=== PATIENT | female | born 1970 | race Caucasian/White ===

== ENCOUNTER 2017-10-04 15:37 | Emergency (ER) | payer OTHER ==
[2017-10-04 17:17] VITALS: BP 143/97
--- NOTE | 2017-10-04 17:45 | ED ---
Abdominal Pain/Female - HPI Summary HPI Summary: 47 yr old female with the complaint of abdominal pain. Onset of pain a week ago , and it comes and goes, located in the right lower abdomen, and right mid side abdomen. Not better or worse with anything. No NVD. No constipation. No fever , chills. No dysuria. No vaginal bleeding. She has a history of urterine cancer and she has had a EDILMA. She states she still have her ovaries. Pain 8/ 10 when she arrived here, and presently states it is 0/10 - History of Current Complaint Chief Complaint: UCAbdominalPain Stated Complaint: RIGHT SIDE ABDOMINAL PAIN Time Seen by Provider: 10/04/17 17:22 Hx Last Menstrual Period: 08/18/16 Allergies/Adverse Reactions: Allergies Allergy/AdvReac Type Severity Reaction Status Date / Time No Known Allergies Allergy Verified 10/04/17 17:12 Home Medications: Home Medications NK [No Home Medications Reported] 10/04/17 [History Confirmed 10/04/17] PMH/Surg Hx/FS Hx/Imm Hx - Cancer History Cancer Type, Location and Year: Uterine, 2017 - Surgical History Surgery Procedure, Year, and Place: Partial Hysterectomy (has ovaries), 2017, [place], Cholecystectomy, Infectious Disease History: No Infectious Disease History: Denies: Traveled Outside the [place] in Last 30 Days - Family History Known Family History: Positive: Hypertension - Social History Occupation: Employed Full-time Alcohol Use: None Substance Use Type: Reports: None Smoking Status (MU): Never Smoked Tobacco Review of Systems Constitutional: Negative Positive: Abdominal Pain Positive: flank pain. Negative: burning, dysuria, discharge All Other Systems Reviewed And Are Negative: Yes Physical Exam Triage Information Reviewed: Yes Vital Signs On Initial Exam: Initial Vitals Temp Pulse Resp BP Pulse Ox 98.1 F 96 16 143/97 99 10/04/17 17:10 10/04/17 17:10 10/04/17 17:10 10/04/17 17:10 10/04/17 17:10 Vital Signs Reviewed: Yes Appearance: Positive: Well-Appearing, No Pain Distress Skin: Positive: Warm, Skin Color Reflects Adequate Perfusion Head/Face: Positive: Normal Head/Face Inspection Eyes: Positive: EOMI Dental: Positive: Cellulitis @ Neck: Positive: Nontender Respiratory/Lung Sounds: Positive: Clear to Auscultation, Breath Sounds Present Cardiovascular: Positive: RRR. Negative: Murmur Abdomen Description: Positive: Other: - tender right lower abdomen Musculoskeletal: Positive: Strength/ROM Intact Neurological: Positive: Sensory/Motor Intact, Alert, Oriented to Person Place, Time, CN Intact II-III, Normal Gait Psychiatric: Positive: Normal - Pierson Coma Scale Best Eye Response: 4 - Spontaneous Best Motor Response: 6 - Obeys Commands Best Verbal Response: 5 - Oriented Diagnostics - Vital Signs Vital Signs Temp Pulse Resp BP Pulse Ox 10/04/17 17:10 98.1 F 96 16 143/97 99 - Laboratory Lab Results: Lab Results 10/04/17 Range/Units 17:17 POC Urine Color Yellow POC Urine Clarity Clear POC Urine pH 6.5 (5-9) POC Ur Specif Myrtle <= 1.005 L (1.010-1.030) POC Urine Protein Negative (Negative) POC Ur Glucose (UA) Negative (Negative) POC Urine Ketones Negative (Negative) POC Urine Blood Negative (Negative) POC Urine Nitrite Negative (Negative) POC Urine Bilirubin Negative (Negative) POC Urine Urobilinogen 0.2 (Negative) POC U Leukocyte Esteras Trace H (Negative) Lab Statement: Any lab studies that have been ordered have been reviewed, and results considered in the medical decision making process. Abdominal Pain Fem Course/Dx - Course Course Of Treatment: 47 yr old female with right lower abdominal pain on palpation. It is recommended she go to the ER by ambulance in [facility] to not delay her care. She refused transfer by ambulance and signed out AMA. - Diagnoses Provider Diagnoses: Abdominal pain, Hypertension Discharge - Discharge Plan Condition: Good Disposition: AGAINST MEDICAL ADVICE Referrals: Casey Marquez MD [Primary Care Provider] -
== END 2017-10-04 17:36 | disposition left against medical advice (07) ==
LOC: UCCORT 15:37
DX: R10.31 Right lower quadrant pain (principal); I10 Essential (primary) hypertension; Z85.42 Personal history of malignant neoplasm of other parts of uterus; Z90.711 Acquired absence of uterus with remaining cervical stump; Z90.49 Acquired absence of other specified parts of digestive tract
CPT/HCPCS: 81003; 99212; G0463

== ENCOUNTER 2018-11-18 12:04 | Emergency (ER) | payer OTHER ==
--- NOTE | 2018-11-18 14:15 | UC ---
Abdominal Pain Female HPI - HPI Summary HPI Summary: 48-year-old female presents with a two-month history of intermittent right- sided abdominal discomfort. States she feels like there is swelling in her abdomen states she thinks she has some bruising along the upper part of her abdomen. She reports occasional diarrhea but recently has been having normal formed stools. Also complains of some intermittent nausea. She was recently seen for same complaint by her BUSINESS MAIL ENTRY CLERK, Dr. Marquez, who scheduled her for an abdominal ultrasound November 22, 2018. She states that she also went to the emergency room at [facility] today where they performed blood work, urine test, and an ultrasound the patient states workup was negative. Denies fever, chills, chest pain, shortness of breath, cough, vomiting, blood in stool, melena, dysuria, frequency, urgency, hematuria, vaginal discharge, or abnormal bleeding. - History of Current Complaint Chief Complaint: UCAbdominalPain Stated Complaint: RT SIDE PAIN/BRUISING Time Seen by Provider: 11/18/18 13:32 Hx Obtained From: Patient Hx Last Menstrual Period: 08/18/16 Pain Intensity: 8 Allergies/Adverse Reactions: Allergies Allergy/AdvReac Type Severity Reaction Status Date / Time No Known Allergies Allergy Verified 11/18/18 12:20 Home Medications: Home Medications Naproxen Sodium [Aleve] 440 mg PO BID PRN 11/18/18 [History Confirmed 11/18/18] PMH/Surg Hx/FS Hx/Imm Hx Previously Healthy: Yes GI/ History: Gall Bladder Disease - Surgical History Surgical History: Yes Surgery Procedure, Year, and Place: Partial Hysterectomy (has ovaries), 2016, [place], Cholecystectomy, - Family History Known Family History: Positive: Hypertension - Social History Occupation: Employed Full-time Lives: Alone Alcohol Use: None Substance Use Type: None Smoking Status (MU): Never Smoked Tobacco - Immunization History Most Recent Influenza Vaccination: Not the 2017/2017 Season Review of Systems All Other Systems Reviewed And Are Negative: Yes Constitutional: Negative: Fever, Chills Skin: Positive: Bruising. Negative: Rash ENT: Positive: Negative Respiratory: Negative: Shortness Of Breath, Cough Cardiovascular: Negative: Palpitations, Chest Pain Gastrointestinal: Positive: Abdominal Pain, Nausea. Negative: Vomiting, Diarrhea Genitourinary: Negative: Dysuria, Hematuria, Frequency, Urgency, Vaginal/Penile Discharge, Abnormal Bleeding Musculoskeletal: Positive: Negative Neurological: Positive: Negative Is Patient Immunocompromised?: No Physical Exam - Summary Physical Exam Summary: GENERAL APPEARANCE: Well developed, well nourished, alert and cooperative, and appears to be in no acute distress. CARDIAC: Normal S1 and S2. No S3, S4 or murmurs. Rhythm is regular. There is no peripheral edema, cyanosis or pallor. Extremities are warm and well perfused. Capillary refill is less than 2 seconds. Peripheral pulses intact. LUNGS: Clear to auscultation without rales, rhonchi, wheezing or diminished breath sounds. ABDOMEN: Positive bowel sounds. Soft, nondistended. Mild RUQ and RLQ tenderness without guarding or rebound. No masses or hepatosplenomegally. No CVA tenderness. MUSKULOSKELETAL: ROM intact to all extremities. No joint erythema or tenderness. Normal muscular development. Normal gait. SKIN: Skin normal color, texture and turgor with no lesions or eruptions. Triage Information Reviewed: Yes Vital Signs: Initial Vital Signs Temp 98.2 F 11/18/18 12:16 Pulse 84 11/18/18 12:16 Resp 17 11/18/18 12:16 BP 143/83 11/18/18 12:16 Pulse Ox 98 11/18/18 12:16 Vital Signs Reviewed: Yes Abd Pain Female Course/Dx - Course Course Of Treatment: 48-year-old female presents with a two-month history of intermittent right-sided abdominal discomfort. States she feels like there is swelling in her abdomen states she thinks she has some bruising along the upper part of her abdomen. She reports occasional diarrhea but recently has been having normal formed stools. Also complains of some intermittent nausea. She was recently seen for same complaint by her BUSINESS MAIL ENTRY CLERK, Dr. Marquez, who scheduled her for an abdominal ultrasound November 22, 2018. She states that she also went to the emergency room at [facility] today where they performed blood work, urine test, and an ultrasound the patient states workup was negative. Denies fever, chills, chest pain, shortness of breath, cough, vomiting, blood in stool, melena, dysuria, frequency, urgency, hematuria, vaginal discharge, or abnormal bleeding. Afebrile. Mildly elevated blood pressure otherwise vital signs stable. Patient's physical exam was unremarkable except for some mild right upper and right lower quadrant tenderness without guarding or rebound. To ER records from her visit this morning were requested however physician's note was not available at this time. I did obtain her lab work including a CBC and CMP and UA which were all unremarkable. I also reviewed the abdominal ultrasound that was performed which showed no acute pathology although evaluation of her pancreas was limited by overlying bowel gas. I reviewed all these findings with the patient and explained that we had limited capacity for performing any further evaluation of her abdominal pain. Considering the duration of her symptoms, an essentially normal exam, and benign workup performed at the emergency room I do not suspect that her abdominal pain represents an emergent condition and I feel that her symptoms can be further evaluated on an outpatient basis. She states her daughter has made an appointment for her to establish with a primary care provider within the next 2 weeks. I have encouraged her to keep this appointment. I did offer her the option of outpatient evaluation through the [facility] of [facility] but she declined stating she did not want to travel to [place] for evaluation. I did provide her with the contact information for the [facility] physicial referral service if she needed further assistance with establishing with a primary care provider. Warning symptoms that would required immediate evaluation in the emergency room were reviewed with the patient. Verbalizes understanding and agrees with POC. - Differential Dx/Diagnosis Differential Diagnosis: Bowel Obstruction, Constipation, Hepatitis, Irritable Bowel Syndrome, Pancreatitis, Renal Colic, Urinary Tract Infection Provider Diagnosis: Abdominal pain Discharge - Sign-Out/Discharge Documenting (check all that apply): Patient Departure All imaging exams completed and their final reports reviewed: No Studies - Discharge Plan Condition: Stable Disposition: HOME Patient Education Materials: Abdominal Pain (ED) Referrals: No Primary Care Phys,NOPCP [Primary Care Provider] - [facility]IAN REFERRAL [Outside] Additional Instructions: I reviewed your lab results and ultrasound report that was performed in the emergency room today which were all normal. You exam was unremarkable. Many times the cause of abdominal pain cannot be determined however I have a low suspicion that your pain is from an emergent condition and can be further evaluated on an outpatient basis. Be sure to keep the appointment with the primary care provider that your daughter scheduled for you within the next 2 weeks. I have provided you with the contact information for the [facility] physician referral service if you need further assistance with establishing with a primary care provider. Seek immediate medical attention in the emergency room if you develop fever greater than 100.5 F, have worsening abdominal pain, have persistent or projectile vomiting, blood in your vomit or stool, or any worsening of symptoms. - Billing Disposition and Condition Condition: STABLE Disposition: Home - Attestation Statements Provider Attestation: Per institutional requirements, I have reviewed the chart, however, I was not consulted specifically or made aware of this patient by the midlevel provider. I did not personally evaluate, interact with , or disposition this patient.
[2018-11-18 14:50] VITALS: BP 138/89
== END 2018-11-18 14:40 | disposition home or self-care (01) ==
LOC: UCCORT 12:04
DX: R10.9 Unspecified abdominal pain (principal); R19.7 Diarrhea, unspecified; R11.0 Nausea
CPT/HCPCS: 99211; G0463

== ENCOUNTER 2018-12-02 14:25 | Emergency (ER) | payer OTHER ==
[2018-12-02 14:43] VITALS: BP 143/95
--- NOTE | 2018-12-02 14:57 | UC ---
General HPI - HPI Summary HPI Summary: L UPPER BREAST TENDERNESS, PRESSURE AND SENSE OF FULLNESS ON AND OFF SINCE YESTERDAY. NO FEVER, RASH OR INJURY. DENIES ANY DISCHARGE FROM THE BREAST. STATES LAST MAMMOGRAM WAS ORDERED BY HER PROFESSOR OF MUSIC, DR MARQUEZ ABOUT 1 YEAR AGO AND WAS NORMAL. DOES SELF BREAST EXAMS REGULARLY. - History of Current Complaint Chief Complaint: UCSkin Stated Complaint: PERSONAL Time Seen by Provider: 12/02/18 14:40 Hx Obtained From: Patient Hx Last Menstrual Period: 08/18/16 Pain Intensity: 4 - Allergy/Home Medications Allergies/Adverse Reactions: Allergies Allergy/AdvReac Type Severity Reaction Status Date / Time No Known Allergies Allergy Verified 12/02/18 14:44 PMH/Surg Hx/FS Hx/Imm Hx - Additional Past Medical History Additional PMH: UTERINE FIBROIDS-HYSTERECTOMY BUT HAS OVARIES - Surgical History Surgical History: Yes Surgery Procedure, Year, and Place: Partial Hysterectomy (has ovaries), 2017, [place], Cholecystectomy, - Family History Known Family History: Positive: Hypertension - Social History Alcohol Use: None Substance Use Type: None Smoking Status (MU): Never Smoked Tobacco - Immunization History Most Recent Influenza Vaccination: Not the 2016/2017 Season Review of Systems All Other Systems Reviewed And Are Negative: Yes Physical Exam Triage Information Reviewed: Yes Appearance: Well-Appearing Vital Signs: Initial Vital Signs Temp 98.6 F 12/02/18 14:38 Pulse 79 12/02/18 14:38 Resp 18 12/02/18 14:38 BP 143/95 12/02/18 14:38 Pulse Ox 96 12/02/18 14:38 Vital Signs Reviewed: Yes Eyes: Positive: Conjunctiva Clear ENT: Positive: Normal ENT inspection Neck: Positive: Supple, Nontender, No Lymphadenopathy Respiratory: Positive: Lungs clear, Normal breath sounds Cardiovascular: Positive: RRR, No Murmur Abdomen Description: Positive: Nontender, No Organomegaly, Soft Bowel Sounds: Positive: Present Musculoskeletal: Positive: ROM Intact Neurological: Positive: Alert Psychological: Positive: Age Appropriate Behavior Skin Exam: Normal, Other - BILATERAL BREAST EXAM: NO SWELLING, RASH OR DISCHARGE FROM NIPPLES. L NIPPLE FLAT TO INVERTED WHICH PT DESCRIBES AT NORMAL. NO DIMPLING IN SKIN. NO MASS OR SWELLING ON PALPATION TO EITHER BREAST. NO NECK , CLAVICULAR OR AXILLARY ADENOPATHY. Course/Dx - Differential Dx - Multi-Symptom Differential Diagnoses: Other - NO SIGN OF INFECTION OR MASS. NEED TO F/U WITH DR MARQUEZ FOR A RECHECK WAS STRESSED AT TIME OF VISIT TO WHICH PT AGREES. SHE WILL GO TO THE ER FOR ANY WORSENING. - Diagnoses Provider Diagnosis: Breast pain, left Discharge - Sign-Out/Discharge Documenting (check all that apply): Patient Departure All imaging exams completed and their final reports reviewed: No Studies - Discharge Plan Condition: Stable Disposition: HOME Patient Education Materials: Breast Mass (ED) Referrals: Casey Marquez MD [Medical Doctor] - As Soon As Possible Additional Instructions: SINCE YOUR PROFESSOR OF MUSIC(DR MARQUEZ) IS CLOSED TODAY, CALL HIM THIS COMING WEDNESDAY TO BE SEEN SOON POSSIBLE - Billing Disposition and Condition Condition: STABLE Disposition: Home
== END 2018-12-02 15:10 | disposition home or self-care (01) ==
LOC: UCCORT 14:25
DX: N64.4 Mastodynia (principal)
CPT/HCPCS: 99211; G0463